=== PATIENT | male | born 1970 | race Caucasian/White ===

== ENCOUNTER 2019-06-03 12:50 | Emergency (ER) | payer OTHER ==
[2019-06-03 13:25] VITALS: BP 151/95
--- NOTE | 2019-06-03 13:59 | UC ---
Lower Extremity/Ankle HPI - HPI Summary HPI Summary: 49-year-old male presents with complaints of pain and swelling to his right fifth toe and distal lateral foot. States approximately 2 and half weeks ago he accidentally dropped a ladder onto his right foot. States had a lot of swelling and bruising to the injured area that has improved some but has not completely subsided. He has been able to walk and bear weight since the injury. States has a lot of pain after he has been up and moving for a period of time. Denies any numbness or tingling. - History of Current Complaint Chief Complaint: UCLowerExtremity Stated Complaint: FOOT INJURY Time Seen by Provider: 06/03/19 13:16 Hx Obtained From: Patient Pain Intensity: 2 - Allergies/Home Medications Allergies/Adverse Reactions: Allergies Allergy/AdvReac Type Severity Reaction Status Date / Time No Known Allergies Allergy Verified 06/03/19 13:17 Home Medications: Home Medications Atorvastatin* [Lipitor*] 20 mg PO DAILY 06/03/19 [History Confirmed 06/03/19] Omeprazole 40 mg PO DAILY 06/03/19 [History Confirmed 06/03/19] PMH/Surg Hx/FS Hx/Imm Hx Previously Healthy: Yes Endocrine History: Dyslipidemia GI/ History: Gastroesophageal Reflux - Surgical History Surgical History: Yes Surgery Procedure, Year, and Place: R eye - Family History Known Family History: Positive: Non-Contributory - Social History Occupation: Employed Full-time Lives: With Family Alcohol Use: Daily Alcohol Amount: 3 beers/ night Substance Use Type: None Smoking Status (MU): Never Smoked Tobacco Review of Systems All Other Systems Reviewed And Are Negative: Yes Constitutional: Positive: Negative Skin: Positive: Bruising Respiratory: Positive: Negative Cardiovascular: Positive: Negative Gastrointestinal: Positive: Negative Genitourinary: Positive: Negative Motor: Negative: Weakness Neurovascular: Negative: Decreased Sensation Musculoskeletal: Positive: Other: - See HPI Neurological: Positive: Negative Is Patient Immunocompromised?: No Physical Exam - Summary Physical Exam Summary: GENERAL APPEARANCE: Well developed, well nourished, alert and cooperative, and appears to be in no acute distress. CARDIAC: Normal S1 and S2. No S3, S4 or murmurs. Rhythm is regular. There is no peripheral edema, cyanosis or pallor. Extremities are warm and well perfused. Capillary refill is less than 2 seconds. Peripheral pulses intact. LUNGS: Clear to auscultation without rales, rhonchi, wheezing or diminished breath sounds. ABDOMEN: Positive bowel sounds. Soft, nondistended, nontender. No guarding or rebound. No masses or hepatosplenomegally. MUSKULOSKELETAL: Normal muscular development. Normal gait. EXTREMITIES: Tenderness to the 5th right toe with mild edema and ecchymosis. No gross deformity. Circulation and sensation intact. SKIN: Skin normal color, texture and turgor. Triage Information Reviewed: Yes Vital Signs: Initial Vital Signs Temp 97.6 F 06/03/19 13:18 Pulse 99 06/03/19 13:18 Resp 20 06/03/19 13:18 BP 151/95 06/03/19 13:18 Pulse Ox 99 06/03/19 13:18 Vital Signs Reviewed: Yes Diagnostics - Radiology No standard instances Radiology Interpretation Completed By: Radiologist Summary of Radiographic Findings: Order Information: FOOT RIGHT 3+ VWS. INDICATION: Right foot injury. TECHNIQUE: 3 views of the right foot were obtained. FINDINGS: A nondisplaced fracture extends through the fused right fifth distal and middle phalanges. The bone mineralization is within normal limits. Anatomic alignment is maintained. The joint spaces are preserved. IMPRESSION: A nondisplaced fracture extends through the fused right fifth distal and middle phalanges. Lower Extremity Course/Dx - Course Course Of Treatment: 49-year-old male presents with complaints of pain and swelling to his right fifth toe and distal lateral foot. States approximately 2 and half weeks ago he accidentally dropped a ladder onto his right foot. States had a lot of swelling and bruising to the injured area that has improved some but has not completely subsided. He has been able to walk and bear weight since the injury. States has a lot of pain after he has been up and moving for a period of time. Denies any numbness or tingling. Afebrile. Hypertensive otherwise vital signs stable. Patient had tenderness of the right fifth toe with mild edema and ecchymosis, no gross deformity, circulation and sensation were intact. X-ray showed a nondisplaced fracture extends through the fused right fifth distal and middle phalanges. Results reviewed with the patient. Recommending conservative treatment for a nondisplaced right fifth toe fracture including [id number] analgesics and RICE. Patient was placed in a postop shoe by the RN. He is to follow-up with orthopedic surgery in 7 days especially if symptoms are not improving. Anticipatory guidance and warning symptoms reviewed with the patient. Verbalized understanding and agrees with plan of care. - Differential Dx/Diagnosis Differential Diagnosis/HQI/PQRI: Contusion, Dislocation, Fracture (Closed), Sprain Provider Diagnosis: Fracture of fifth toe, right, closed Discharge ED - Sign-Out/Discharge Documenting (check all that apply): Patient Departure All imaging exams completed and their final reports reviewed: Yes - Discharge Plan Condition: Stable Disposition: HOME Patient Education Materials: Toe Fracture (ED) Referrals: Stephani STARKS,Markell Juarez [Primary Care Provider] - Franck Eddy MD [Medical Doctor] - 7 Days (Call for appointment.) Additional Instructions: The x-ray performed in the clinic today showed evidence of a nondisplaced fracture that extends through the fused right fifth distal and middle phalanges. Rest the foot as much as possible. You may continue to walk and bear weight as tolerated. Use the post-op shoe applied in the clinic today for support. You may remove to shower and sleep but should wear at all other times. Apply ice to the affected area for 15-20 minutes at least 4 times a day to help with the pain and swelling. Elevate the foot to help reduce swelling. Take acetaminophen (Tylenol) or ibuprofen (Advil, Motrin) according to directions as needed for pain. Follow up with orthopedic surgery in 7 days especially if symptoms do not improve. Seek immediate medical attention if you have severe pain not managed with pain medication, you are unable to walk or bear any weight, or have any worsening of symptoms. - Billing Disposition and Condition Condition: STABLE Disposition: Home
== END 2019-06-03 14:26 | disposition home or self-care (01) ==
LOC: UCEAST 12:50
DX: S92.534A Nondisplaced fracture of distal phalanx of right lesser toe(s), initial encounter for closed fracture (principal); E78.5 Hyperlipidemia, unspecified; K21.9 Gastro-esophageal reflux disease without esophagitis; Z79.899 Other long term (current) drug therapy; W20.8XXA Other cause of strike by thrown, projected or falling object, initial encounter; Y92.9 Unspecified place or not applicable
CPT/HCPCS: 99201; G0463